=== PATIENT | male | born 2000 | race Caucasian/White ===

== ENCOUNTER 2022-04-09 12:53 | Emergency (ER) | payer OTHER, MEDICAID ==
[2022-04-09] MEDS ORDERED: fentaNYL 50 MCG/ML SDV IVPUSH ONE (12:54)
[2022-04-09] MEDS ORDERED: Lactated Ringers 1,000 ML IV ONE (12:54)
[2022-04-09] MEDS ORDERED: Diphtheria,Pertussis(Acell),Tetanus Vaccine 0.5 ML Syringe IM ONE (12:57)
[2022-04-09 13:31] LABS: BLOOD UREA NITROGEN,BUN 17 mg/dL (7.0-18.0); CARBON DIOXIDE,CO2 28.2 mmol/L (21.0-32.0); CHLORIDE,CL 105 mmol/L (98-107); GLUCOSE RANDOM 106 mg/dL (74-106); LIPASE 100 U/L (73-393); POTASSIUM,K 4.7 mmol/L (3.5-5.1); SODIUM,NA 142 mmol/L (136-148)
[2022-04-09] MEDS ORDERED: Iopamidol 755 MG/ML 500 ML Multipack Bottle IVPUSH STA (13:34)
[2022-04-09 13:37] LABS: ESTIMATED GFR 111 mL/min (>60)
[2022-04-09] MEDS ORDERED: Acetaminophen/HYDROcodone 325-5 MG Tab PO ONE (16:00)
== END 2022-04-09 15:50 | disposition home or self-care (01) ==
LOC: MW.ED 12:53
DX: S42.021A Displaced fracture of shaft of right clavicle, initial encounter for closed fracture (principal); S20.311A Abrasion of right front wall of thorax, initial encounter; S80.811A Abrasion, right lower leg, initial encounter; S80.812A Abrasion, left lower leg, initial encounter; Z23 Encounter for immunization; V48.9XXA Unspecified car occupant injured in noncollision transport accident in traffic accident, initial encounter; Y92.410 Unspecified street and highway as the place of occurrence of the external cause
CPT/HCPCS: 36415; 70450; 71260; 72125; 74177; 80053; 80305; 80307; 81001; 82550; 83690; 83735; 84484; 85025; 85610; 90471; 90715; 93005; 96361; 96374; 99285; A9270; J3010; J7120; Q9967; 93010

== ENCOUNTER 2022-04-13 08:42 | Day surgery (SDC) | payer OTHER, MEDICAID ==
[~2022-04-13 08:42] MED LIST: Albuterol 0.083% 2.5 MG/3 ML Neb Soln NEB PRN; Bupivacaine 0.25%/EPINEPHrine 1:200,000 10 ML SDV ONE; Bupivacaine 0.5% 10 ML SDV ONE; Dexamethasone 4 MG/ML 5 ML MDV ONE; HYDROmorphone 1 MG/ML Syringe IVPUSH PRN; Ketorolac 30 MG/ML SDV ONE; Lactated Ringers 1,000 ML IV SCH; Lidocaine 2% 5 ML SDV ONE; Metoclopramide 10 MG/2 ML SDV IVPUSH PRN; Morphine 4 MG/ML VIAL IVPUSH PRN; Naloxone 0.4 MG/ML SDV IVPUSH PRN; Ondansetron 4 MG/2 ML SDV IVPUSH PRN; Ondansetron 4 MG/2 ML SDV ONE; Rocuronium Bromide 50 MG/5 ML Syringe ONE; Sugammadex Sodium 200 MG/2 ML VIAL ONE; ceFAZolin 1 GM Vial ONE; ceFAZolin 2 GM in Premix Bag 1 BAG IV SCH; fentaNYL 100 MCG/2 ML SDV ONE; fentaNYL 50 MCG/ML SDV IVPUSH PRN; propofoL 100 ML ONE
[2022-04-13] MEDS ORDERED: Lidocaine 2% 5 ML SDV ONE (10:13)
[2022-04-13] MEDS ORDERED: Midazolam 1 MG/ML 2 ML SDV ONE (10:15)
[2022-04-13] MEDS ORDERED: Bupivacaine 0.25% 10 ML SDV ONE (10:27)
[2022-04-13] MEDS ORDERED: Bupivacaine 0.25%/EPINEPHrine 1:200,000 10 ML SDV ONE (10:28)
[2022-04-13] MEDS ORDERED: Magnesium Sulfate (4.06 MEQ/ML) 5 GM/10 ML SDV ONE (10:54)
[2022-04-13] MEDS ORDERED: Propofol 200 MG/20 ML SDV ONE (11:42)
== END 2022-04-13 13:15 | disposition home or self-care (01) ==
LOC: MW.SDS 08:42
PROVIDERS: ATTEND Orthopaedic Surgery
DX: S42.021A Displaced fracture of shaft of right clavicle, initial encounter for closed fracture (principal); I10 Essential (primary) hypertension; F41.9 Anxiety disorder, unspecified; F84.0 Autistic disorder; F17.200 Nicotine dependence, unspecified, uncomplicated; Z87.81 Personal history of (healed) traumatic fracture; Z79.83 Long term (current) use of bisphosphonates; Z79.51 Long term (current) use of inhaled steroids; Z79.899 Other long term (current) drug therapy; V49.9XXA Car occupant (driver) (passenger) injured in unspecified traffic accident, initial encounter
CPT/HCPCS: 23515; J0131; J0690; J1100; J1885; J2250; J2405; J2704; J3010; J3475; J3490; J7120; 00450; 64415; 76942; C1713